=== PATIENT | male | born 1980 | race Caucasian/White ===

== ENCOUNTER → 2021-11-03 | Outpatient (CLI) | payer BC | LOC: M WUC 08:30 | DX: E29.1 Testicular hypofunction (principal) ==

== ENCOUNTER → 2022-01-19 | Outpatient (CLI) | payer BC | LOC: EDBD 06:52 → M LAB 06:52 | DX: Z30.2 Encounter for sterilization (principal) | CPT/HCPCS: 36415; 84403; 85014; G0103 ==